=== PATIENT | female | born 1935 | race Caucasian/White ===

== ENCOUNTER 2016-07-29 12:17 | Inpatient (IN) | payer OTHER ==
[2016-07-29] VITALS (8 sets, daily range): BP systolic 104–125; BP diastolic 56–60
[~2016-07-29] VITALS: Ht 165.1 cm; Wt 89.5 kg
[~2016-07-29 12:17] MED LIST: ALEVE220 M2 PO; ALLERGY RELIEF10 M5 PO; ASPIR-LOW81 MG PO; BIOTIN PLUS KE1 EACH PO; BIOTIN10 MG PO; CALCIUM 600 +1 EA15 PO; DAILY VITE1 EAC1 PO; FISH OIL 1,0001 EA10 PO; GENTEAL MILD25 ML BOTH EYES; HAIR, SKIN & N1 EAC1 PO; LISINOPRIL-HCT1 EAC3 PO; LISINOPRIL-HCT1 EACH PO; LO-DOSE ASPIRIN81 M1 PO; LOVASTATIN40 MG PO; MULTIVITAMIN1 EAC2 PO; NEXIUM 24HR20 MG PO; NEXIUM20 MG PO; PROTONIX40 MG PO; ZOFRAN4 MG PO
[2016-07-29 14:06] LABS: EOSINOPHIL (%) 1.4 % (0-5); HEMATOCRIT 20.4 % (36.0-46.0); IMMATURE GRANULOCYTE (%) 0.4 % (0.0-0.7); INSTRUMENT ABS NEUTROPHIL CT 2.1 K/uL; LYMPHOCYTE COUNT 0.5 K/uL (1.0-2.8); MCH 32.6 PG (29.0-34.0); MCHC 34.3 G/DL (30.0-36.0); MCV 94.9 FL (83-99); MEAN PLAT.VOLUME 10.7 uM^3 (9.5-12.4); MONOCYTE (%) 7.4 % (3-12); MONOCYTE COUNT 0.2 K/uL (0-0.8); NEUTROPHIL (%) 71.8 % (45-76); NEUTROPHIL COUNT 2.1 K/uL (1.8-6.4); PLATELET COUNT 67 K/uL (156-360); RBC DIS.WIDTH-SD 48.1 % (39-53); RED BLOOD COUNT 2.15 M/uL (3.80-5.20); WHITE BLOOD COUNT 2.9 K/uL (4.1-10.2)
[2016-07-29 14:17] LABS: INTER. NORMALIZED RATIO 1.4; PROTHROMBIN TIME 13.9 (9.2-11.2)
[2016-07-29 14:20] LABS: CHLORIDE 107 mEq/L (99-109); POTASSIUM 3.7 mEq/L (3.7-5.4); SODIUM 139 mEq/L (136-147)
[2016-07-29 14:22] LABS: GLUCOSE 169 mg/dL (70-99)
[2016-07-29 14:23] LABS: ANION GAP 9 MEQ/L (2-14)
[2016-07-29 14:26] LABS: GFR ESTIMATE (CALCULATED) > 59 mL/min/
[2016-07-29 14:27] LABS: UREA NITROGEN (BUN) 15 mg/dL (9-23)
[2016-07-29] MEDS ORDERED: FISH OIL300 MG PO (14:41)
[2016-07-29] MEDS ORDERED: PANTOPRAZOLE SO40 MG PO (14:44)
[2016-07-29] MEDS ORDERED: PROMETHAZINE HC25 M1 PO (14:45)
[2016-07-29] MEDS ORDERED: BENTYL20 MG PO (14:45)
[2016-07-29] MEDS ORDERED: CIPROFLOXACIN500 M1 PO (14:46)
[2016-07-29] MEDS ORDERED: METRONIDAZOLE500 MG PO (14:47)
[2016-07-29 16:42] LABS: LIPASE 14 U/L (1.0-51.0)
[2016-07-30 03:10] VITALS: BP 115/57
[2016-07-30 06:59] LABS: EOSINOPHIL (%) 3.6 % (0-5); EOSINOPHIL COUNT 0.1 K/uL (0-0.3); HEMATOCRIT 22.7 % (36.0-46.0); IMMATURE GRANULOCYTE (%) 0.6 % (0.0-0.7); LYMPHOCYTE COUNT 0.4 K/uL (1.0-2.8); MCH 31.9 PG (29.0-34.0); MCHC 33.5 G/DL (30.0-36.0); MCV 95.4 FL (83-99); MONOCYTE (%) 7.9 % (3-12); MONOCYTE COUNT 0.1 K/uL (0-0.8); NEUTROPHIL (%) 63.1 % (45-76); RBC DIS.WIDTH-CV 14.5 % (11.8-14.6); RBC DIS.WIDTH-SD 49.6 % (39-53); RED BLOOD COUNT 2.38 M/uL (3.80-5.20)
[2016-07-30 07:00] LABS: WHITE BLOOD COUNT 1.7 K/uL (4.1-10.2)
[2016-07-30 07:21] LABS: ALKALINE PHOSPHATASE 49 IU/L (3-129); ANION GAP 7 MEQ/L (2-14); CHLORIDE 110 MEQ/L (99-109); GFR ESTIMATE (CALCULATED) > 59 mL/min/; GLUCOSE 158 mg/dL (70-99); POTASSIUM 3.5 MEQ/L (3.7-5.4); SAMPLE HEMOLYSIS CHECK 0; SAMPLE ICTERIC CHECK 0; SAMPLE LIPEMIA CHECK 0; SODIUM 141 MEQ/L (136-147); TOTAL BILIRUBIN 0.9 MG/DL (0.0-1.0); UREA NITROGEN (BUN) 11 mg/dL (9-23)
[2016-07-30 07:30] LABS: IMM.PLATELET FRACTION 1.8 (1-7); MEAN PLAT.VOLUME 10.6 uM^3 (9.5-12.4); PLAT.SUFFICIENCY DECREASED; PLATELET COUNT 54 K/uL (156-360)
[2016-07-30 09:00] VITALS: BP 135/67
[2016-07-30 10:12] LABS: HEMATOCRIT 26.1 % (36.0-46.0); MCH 31.8 PG (29.0-34.0); MCHC 33.3 G/DL (30.0-36.0); MCV 95.3 FL (83-99); MEAN PLAT.VOLUME 10.7 uM^3 (9.5-12.4); PLATELET COUNT 52 K/uL (156-360); RBC DIS.WIDTH-CV 14.5 % (11.8-14.6); RBC DIS.WIDTH-SD 49.5 % (39-53); RED BLOOD COUNT 2.74 M/uL (3.80-5.20); WHITE BLOOD COUNT 2.1 K/uL (4.1-10.2)
[2016-07-30 12:00] VITALS: BP 117/60
[2016-07-30 15:00] VITALS: BP 119/61
[2016-07-30 19:07] LABS: POINT-OF-CARE METER ID UU13113819
[2016-07-30 19:20] VITALS: BP 149/82
[2016-07-30 23:15] VITALS: BP 124/63
[2016-07-31 03:20] VITALS: BP 123/66
[2016-07-31 07:23] VITALS: BP 126/64
[2016-07-31 09:06] LABS: HEMATOCRIT 26.9 % (36.0-46.0); MCHC 33.8 G/DL (30.0-36.0); MCV 94.7 FL (83-99); MEAN PLAT.VOLUME 10.5 uM^3 (9.5-12.4); PLATELET COUNT 59 K/uL (156-360); RBC DIS.WIDTH-CV 14.4 % (11.8-14.6); RBC DIS.WIDTH-SD 48.9 % (39-53); RED BLOOD COUNT 2.84 M/uL (3.80-5.20); WHITE BLOOD COUNT 2.4 K/uL (4.1-10.2)
[2016-07-31 09:30] LABS: ANION GAP 7 MEQ/L (2-14); CHLORIDE 107 MEQ/L (99-109); GFR ESTIMATE (CALCULATED) > 59 mL/min/; GLUCOSE 192 mg/dL (70-99); POTASSIUM 3.8 MEQ/L (3.7-5.4); SAMPLE HEMOLYSIS CHECK 0; SAMPLE ICTERIC CHECK 0; SAMPLE LIPEMIA CHECK 0; SODIUM 137 MEQ/L (136-147); UREA NITROGEN (BUN) 8 mg/dL (9-23)
[2016-07-31 12:02] VITALS: BP 129/68
== END 2016-07-31 15:00 | disposition home or self-care (01) | DRG 378 ==
LOC: EME 12:17 → 4EAST 13:57 → EDOF 13:57 → 4EAST 15:36
PROVIDERS: Emergency Medicine; Hospitalist; Physician Assistant; Student in an Organized Health Care Education/Training Program
DX: K92.2 Gastrointestinal hemorrhage, unspecified (principal); D61.818 Other pancytopenia; I95.9 Hypotension, unspecified; R18.8 Other ascites; K76.6 Portal hypertension; K74.60 Unspecified cirrhosis of liver; I85.00 Esophageal varices without bleeding; I10 Essential (primary) hypertension; E78.5 Hyperlipidemia, unspecified; K21.9 Gastro-esophageal reflux disease without esophagitis; D64.9 Anemia, unspecified; R01.1 Cardiac murmur, unspecified; I86.4 Gastric varices; D73.2 Chronic congestive splenomegaly; K52.9 Noninfective gastroenteritis and colitis, unspecified; K20.9 Esophagitis, unspecified; K29.70 Gastritis, unspecified, without bleeding; K31.89 Other diseases of stomach and duodenum; I78.1 Nevus, non-neoplastic
CPT/HCPCS: 36415; 74176; 80048; 80053; 82948; 83690; 85025; 85025 91; 85027; 85610; 86900; 86901; 86920; 93005; 99281; 99285; C9113; J7030; P9016